=== PATIENT | female | born 1940 | race Caucasian/White ===

== ENCOUNTER 2017-10-25 09:22 | Day surgery (SDC) | payer OTHER, BC ==
[~2017-10-25] VITALS: Ht 154.9 cm; Wt 62.7 kg
[~2017-10-25 09:22] MED LIST: ACIPHEX20 MG PO; AMBIEN5 MG PO; BUMEX0.5 MG PO; CLARITIN10 M3 PO; DIPROSONE 0.05%15 GM TP; ENTOCORT EC3 MG PO; FLORASTOR250 MG PO; HEARTBURN RELI150 M1 PO; LIPITOR10 MG PO; LO-DOSE ASPIRIN81 M1 PO; NORVASC10 MG PO; PLAVIX75 MG PO; PREDNISONE1 MG PO; PRILOSEC20 MG PO; ROCALTROL0.25 MCG PO; SUPER CALCIUM600 MG PO; TEMOVATE 0.05%30 GM TP; TIROSINT125 MCG PO; TOPROL XL100 MG PO; ULTRAM50 MG PO; VITAMIN D2000 UNI1 PO; WELCHOL625 MG PO
[2017-10-25 10:29] LABS: HEMATOCRIT 33.8 % (36.0-46.0); MCH 34.4 PG (29.0-34.0); MCV 107.6 FL (83-99); MEAN PLAT.VOLUME 11.4 uM^3 (9.5-12.4); NRBC (%) 1.4 /100 WBC (0-0); PLATELET COUNT 244 K/uL (156-360); RBC DIS.WIDTH-CV 22.9 % (11.8-14.6); RBC DIS.WIDTH-SD 89.2 % (39-53); RED BLOOD COUNT 3.14 M/uL (3.80-5.20); WHITE BLOOD COUNT 17.7 K/uL (4.1-10.2)
[2017-10-25 10:41] LABS: CHLORIDE 107 mEq/L (99-109); POTASSIUM 3.1 mEq/L (3.7-5.4); SODIUM 145 mEq/L (136-147)
[2017-10-25 10:43] LABS: GLUCOSE 90 mg/dL (70-99)
[2017-10-25 10:45] LABS: ANION GAP 14 MEQ/L (2-14)
[2017-10-25 10:47] LABS: GFR ESTIMATE (CALCULATED) 18 mL/min/
[2017-10-25 10:48] LABS: UREA NITROGEN (BUN) 29 mg/dL (9-23)
[2017-10-25] MEDS ORDERED: NORCO 5/3251 TABLET PO (12:57)
[2017-10-25 14:00] VITALS: BP 177/76
[2017-10-25 14:50] VITALS: BP 183/74
== END 2017-10-25 15:20 | disposition home or self-care (01) ==
LOC: SDC 09:22
PROVIDERS: Surgery
DX: I12.0 Hypertensive chronic kidney disease with stage 5 chronic kidney disease or end stage renal disease (principal); N18.6 End stage renal disease; K66.0 Peritoneal adhesions (postprocedural) (postinfection); Z99.2 Dependence on renal dialysis; K25.9 Gastric ulcer, unspecified as acute or chronic, without hemorrhage or perforation; J44.9 Chronic obstructive pulmonary disease, unspecified; K21.9 Gastro-esophageal reflux disease without esophagitis; Z90.710 Acquired absence of both cervix and uterus; Z79.82 Long term (current) use of aspirin; Z82.49 Family history of ischemic heart disease and other diseases of the circulatory system; Z88.5 Allergy status to narcotic agent; Z88.6 Allergy status to analgesic agent; Z88.2 Allergy status to sulfonamides; Z88.1 Allergy status to other antibiotic agents; Z88.8 Allergy status to other drugs, medicaments and biological substances
CPT/HCPCS: 80048; 85027; 93005; C1750; J0690; J1100; J2405; J2710; J3010; S0020

== ENCOUNTER 2018-01-17 09:46 | Day surgery (SDC) | payer OTHER, BC ==
[~2018-01-17] VITALS: Ht 157.5 cm; Wt 59.0 kg
[~2018-01-17 09:46] MED LIST changes: +ARANESP40 MCG/0.4 IV; +CYANOCOBALAM1000 MCG PO; +NORCO 5/3251 TABLET PO; -PREDNISONE1 MG PO; +PREDNISONE2.5 MG PO; +TEMOVATE 0.05%15 G1 TP; -VITAMIN D2000 UNI1 PO; +VITAMIN D31000 UNIT PO
[2018-01-17 10:35] LABS: HEMATOCRIT 31.7 % (36.0-46.0); MCH 34.7 PG (29.0-34.0); MCHC 31.5 G/DL (30.0-36.0); MCV 110.1 FL (83-99); NRBC (%) 0.5 /100 WBC (0-0); PLATELET COUNT 316 K/uL (156-360); RBC DIS.WIDTH-SD 87.4 % (39-53); RED BLOOD COUNT 2.88 M/uL (3.80-5.20); WHITE BLOOD COUNT 15.1 K/uL (4.1-10.2)
[2018-01-17 10:50] LABS: CHLORIDE 107 MEQ/L (99-109); CREATININE 4.4 MG/DL (0.6-1.3); GFR ESTIMATE (CALCULATED) 10 mL/min/; GLUCOSE 102 mg/dL (70-99); POTASSIUM 4.7 MEQ/L (3.7-5.4); SODIUM 143 MEQ/L (136-147); UREA NITROGEN (BUN) 68 mg/dL (9-23)
[2018-01-17 11:07] LABS: PLAT.SUFFICIENCY ADEQUATE
[2018-01-17 11:13] VITALS: BP 179/74
[2018-01-17] MEDS ORDERED: NORCO 5/3251 TABLET PO (16:38)
[2018-01-17 17:45] VITALS: BP 164/57
[2018-01-17 18:45] VITALS: BP 162/62
== END 2018-01-17 18:50 | disposition home or self-care (01) ==
LOC: SDC 09:46
PROVIDERS: Surgery
DX: T85.611A Breakdown (mechanical) of intraperitoneal dialysis catheter, initial encounter (principal); I12.0 Hypertensive chronic kidney disease with stage 5 chronic kidney disease or end stage renal disease; N18.6 End stage renal disease; Z99.2 Dependence on renal dialysis; J44.9 Chronic obstructive pulmonary disease, unspecified; K21.0 Gastro-esophageal reflux disease with esophagitis; Z88.1 Allergy status to other antibiotic agents; Z88.2 Allergy status to sulfonamides; Z79.02 Long term (current) use of antithrombotics/antiplatelets; Z79.82 Long term (current) use of aspirin
CPT/HCPCS: 80048; 85027; 87641; C1768; J0690; J1170; J1644; J3010; S0020

== ENCOUNTER 2018-01-22 10:24 | Day surgery (SDC) | payer OTHER, BC ==
[2018-01-22 12:10] VITALS: BP 169/73
[2018-01-22 12:30] LABS: HEMATOCRIT 26.6 % (36.0-46.0); HEMOGLOBIN 8.6 G/DL (11.9-15.5); MCHC 32.3 G/DL (30.0-36.0); MCV 111.3 FL (83-99); NRBC (%) 0.2 /100 WBC (0-0); PLATELET COUNT 300 K/uL (156-360); RBC DIS.WIDTH-CV 20.7 % (11.8-14.6); RED BLOOD COUNT 2.39 M/uL (3.80-5.20); WHITE BLOOD COUNT 12.6 K/uL (4.1-10.2)
[2018-01-22 13:23] LABS: CHLORIDE 101 MEQ/L (99-109); CREATININE 4.4 MG/DL (0.6-1.3); GFR ESTIMATE (CALCULATED) 10 mL/min/; GLUCOSE 73 mg/dL (70-99); POTASSIUM 4.5 MEQ/L (3.7-5.4); SODIUM 143 MEQ/L (136-147); UREA NITROGEN (BUN) 51 mg/dL (9-23)
[2018-01-22] MEDS ORDERED: NORCO 5/3251 TABLET PO (17:33)
[2018-01-22 18:17] VITALS: BP 167/70
[2018-01-22 19:05] VITALS: BP 183/77
== END 2018-01-22 19:10 | disposition home or self-care (01) ==
LOC: SDC 10:24 → AMB 10:24 → SDC 19:10
PROVIDERS: Surgery
PROC: 03WY0JZ Revision of Synthetic Substitute in Upper Artery, Open Approach (ICD-10-PCS; principal; 2018-01-22)
DX: T82.898A Other specified complication of vascular prosthetic devices, implants and grafts, initial encounter (principal); Y83.2 Surgical operation with anastomosis, bypass or graft as the cause of abnormal reaction of the patient, or of later complication, without mention of misadventure at the time of the procedure; I12.0 Hypertensive chronic kidney disease with stage 5 chronic kidney disease or end stage renal disease; N18.6 End stage renal disease; Z99.2 Dependence on renal dialysis; J44.9 Chronic obstructive pulmonary disease, unspecified; K21.0 Gastro-esophageal reflux disease with esophagitis; Z79.82 Long term (current) use of aspirin; Z79.02 Long term (current) use of antithrombotics/antiplatelets; Z88.2 Allergy status to sulfonamides; Z88.5 Allergy status to narcotic agent
CPT/HCPCS: 80048; 80048 91; 85027; 99213; C1757; C1768; J0690; J1644; J3010; J7040